=== PATIENT | male | born 1970 | race African-American/Black ===

== ENCOUNTER → 2017-10-14 | Outpatient (CLI) | payer OTHER, BC | END | disposition home or self-care (01) | LOC: KCIC MRI 15:54 | DX: S83.242A Other tear of medial meniscus, current injury, left knee, initial encounter (principal); M17.12 Unilateral primary osteoarthritis, left knee; M94.262 Chondromalacia, left knee; X58.XXXA Exposure to other specified factors, initial encounter; Y93.89 Activity, other specified; Y92.89 Other specified places as the place of occurrence of the external cause; Y99.8 Other external cause status | CPT/HCPCS: 73721 ==

== ENCOUNTER 2021-01-27 16:29 | Emergency (ER) | payer BC ==
[~2021-01-27] VITALS: Ht 182.9 cm; Wt 106.8 kg
[2021-01-27 17:44] LABS: BASO # 0.1 x10^3/uL (0.0-0.2); BASO % 1 % (0-3); EOS % 0 % (0-3); HEMATOCRIT 38.8 % (39.0-53.0); HEMOGLOBIN 12.7 g/dL (13.0-17.5); LYMPH # 2.7 x10^3/uL (1.0-4.8); LYMPH % 33 % (24-48); MEAN CORPUSCULAR HEMOGLOBIN 23 pg (25-35); MEAN CORPUSCULAR HGB CONC 33 g/dL (31-37); MEAN CORPUSCULAR VOLUME 71 fL (79-100); MONO # 0.6 x10^3/uL (0.0-1.1); MONO % 7 % (0-9); NEUT # 4.9 x10^3/uL (1.8-7.7); NEUT % 59 % (31-73); PLATELET COUNT 317 x10^3/uL (140-400); RED BLOOD COUNT 5.49 x10^6/uL (4.30-5.70); RED CELL DISTRIBUTION WIDTH 15.2 % (11.5-14.5); WHITE BLOOD COUNT 8.3 x10^3/uL (4.0-11.0)
[2021-01-27] MEDS ORDERED: MECLIZINE HCL 12.5 MG TABLET. PO ONE (17:45)
[2021-01-27 17:46] LABS: BILIRUBIN,URINE NEGATIVE (NEG); CLARITY,URINE CLEAR; COLOR,URINE YELLOW; NITRITE,URINE NEGATIVE (NEG); PROTEIN,URINE NEGATIVE (NEG-TRACE); UROBILINOGEN,URINE 0.2 mg/dL (0.2 mg/dL)
[2021-01-27 17:52] LABS: BACTERIA,URINE 0 /HPF (0-FEW); RBC,URINE 0 /HPF (0-2); WBC,URINE 0 /HPF (0-4)
--- NOTE | 2021-01-27 18:02 | RAD ---
EXAM: CT Head without IV contrast CLINICAL HISTORY: near syncope, dizzy COMPARISON: None. TECHNIQUE: Routine CT of the head without contrast. PQRS compliance statement - One or more of the following individualized dose reduction techniques wer e utilized for this study: 1. Automated exposure control 2. Adjustment of the mA and/or kV according to patient size 3. Use of iterative reconstruction technique FINDINGS: There is no evidence of hemorrhage, mass or extra-axial fluid collection. Girard-white differentiation is maintained with no evidence of edema. There is no mass effect or shift of the intracranial structures. The ventricles, basilar cisterns and cortical sulci are normal in size and configuration for the nacho ents stated age. The cerebellum and brainstem are unremarkable. The calvarium demonstrates no evidence of fracture or focal lesion. There is normal aeration of the visualized paranasal sinuses and mastoid air cells. The visualized portions of the orbits are normal. IMPRESSION: No evidence for acute intracranial process. Electronically signed by: Chad Davidson MD (01/27/2021 6:00 PM) [place]
[2021-01-27 18:10] LABS: CALCIUM 8.5 mg/dL (8.5-10.1); CREATININE 1.1 mg/dL (0.7-1.3); GFR 85.4
[2021-01-27 18:18] LABS: ALBUMIN 4.1 g/dL (3.4-5.0); ALBUMIN/GLOBULIN RATIO 1.5 (1.0-1.7); TOTAL BILIRUBIN 0.6 mg/dL (0.2-1.0); TOTAL PROTEIN 6.9 g/dL (6.4-8.2)
--- NOTE | 2021-01-27 18:23 | ED.ADGEN ---
Past Medical History Past Medical History: A-Fib, Hypertension Past Surgical History: Other Additional Past Surgical Histo: L. KNEE Smoking Status: Never Smoker Alcohol Use: Occasionally Drug Use: None General Adult EDM: Chief Complaint: NEAR SYNCOPE HPI: HPI: Patient is a 50 year old male who presents to the ER with complaints of intermittent dizziness for the last 3-4 weeks. Pt states that the symptoms usually occur after he has been driving. He denies any chest pain, LOC, nausea, vomiting, SOA, diarrhea, abdominal pain, fever, cough, headache, numbness, tingling, weakness, headache, difficulty speaking, incoordination, or vision changes. PT states he has been using flonase and taking an antibiotic that his PCP prescribed last week for persistent nasal congestion, sinus pressure, runny nose, and sneezing. Pt states that when the dizziness occcurs he notices a low buzzing sound in his ears. He denies any decreased hearing or ear pain. Pt currently denies any pain. Review of Systems: Review of Systems: COmplete ROS is negative unless otherwise documented in the HPI. Current Medications: Current Medications Medications (Trade) Dose Ordered Sig/Claribel Start Time Stop Time Status Last Admin Dose Admin Meclizine HCl (Antivert) 25 mg 1X ONCE 01/27/21 17:45 01/27/21 17:46 DC 01/27/21 18:23 25 MG Potassium Chloride (Klor-Con) 40 meq 1X ONCE 01/27/21 18:30 01/27/21 18:31 DC 01/27/21 19:03 40 MEQ Sodium Chloride 1,000 ml @ 1,000 mls/hr 1X ONCE 01/27/21 18:30 01/27/21 19:29 DC 01/27/21 18:22 1,000 MLS/HR Allergies: Allergies: Allergies Coded Allergies Type Severity Reaction Last Updated Verified No Known Drug Allergies 11/26/14 No Physical Exam: PE: Constitutional: Well developed, well nourished, no acute distress, non-toxic appearance. [] HENT: Normocephalic, atraumatic, bilateral external ears normal, oropharynx moist, post nasal drainage present, no oral exudates, nose congested bilat Eyes: PERRLA, EOMI, conjunctiva normal, no discharge, no nystagmus . [] Neck: Normal range of motion, no tenderness, supple, no stridor. [] Cardiovascular:Heart rate regular rhythm Lungs & Thorax: respirations regular, unlabored, no wheezing, speaking full sentences Abdomen: soft, no tenderness, no masses, no pulsatile masses. [] Skin: Warm, dry, no erythema, no rash. [] Back: No tenderness Extremities: No tenderness, no cyanosis, no clubbing, ROM intact, no edema. [] Neurologic: Alert and oriented X 3, normal motor function, normal sensory function, no focal deficits noted. [] Psychologic: Affect normal, judgement normal, mood normal. [] Current Patient Data: Labs: Laboratory Tests Test 01/27/21 16:40 01/27/21 16:46 Urine Collection Type Unknown Urine Color Yellow Urine Clarity Clear Urine pH 7.0 (<5.0-8.0) Urine Specific [place] 1.025 (1.000-1.030) Urine Protein Negative mg/dL (NEG-TRACE) Urine Glucose (UA) Negative mg/dL (NEG) Urine Ketones (Stick) Negative mg/dL (NEG) Urine Blood Negative (NEG) Urine Nitrite Negative (NEG) Urine Bilirubin Negative (NEG) Urine Urobilinogen Dipstick 0.2 mg/dL (0.2 mg/dL) Urine Leukocyte Esterase Negative (NEG) Urine RBC 0 /HPF (0-2) Urine WBC 0 /HPF (0-4) Urine Bacteria 0 /HPF (0-FEW) White Blood Count 8.3 x10^3/uL (4.0-11.0) Red Blood Count 5.49 x10^6/uL (4.30-5.70) Hemoglobin 12.7 g/dL (13.0-17.5) L Hematocrit 38.8 % (39.0-53.0) L Mean Corpuscular Volume 71 fL (79-100) L Mean Corpuscular Hemoglobin 23 pg (25-35) L Mean Corpuscular Hemoglobin Concent 33 g/dL (31-37) Red Cell Distribution Width 15.2 % (11.5-14.5) H Platelet Count 317 x10^3/uL (140-400) Neutrophils (%) (Auto) 59 % (31-73) Lymphocytes (%) (Auto) 33 % (24-48) Monocytes (%) (Auto) 7 % (0-9) Eosinophils (%) (Auto) 0 % (0-3) Basophils (%) (Auto) 1 % (0-3) Neutrophils # (Auto) 4.9 x10^3/uL (1.8-7.7) Lymphocytes # (Auto) 2.7 x10^3/uL (1.0-4.8) Monocytes # (Auto) 0.6 x10^3/uL (0.0-1.1) Eosinophils # (Auto) 0.0 x10^3/uL (0.0-0.7) Basophils # (Auto) 0.1 x10^3/uL (0.0-0.2) Platelet Estimate Adequate (ADEQUATE) Hypochromasia Mod Microcytosis Mod Ovalocytes Occ Sodium Level 139 mmol/L (136-145) Potassium Level 3.0 mmol/L (3.5-5.1) L Chloride Level 101 mmol/L (98-107) Carbon Dioxide Level 28 mmol/L (21-32) Anion Gap 10 (6-14) Blood Urea Nitrogen 15 mg/dL (8-26) Creatinine 1.1 mg/dL (0.7-1.3) Estimated GFR (Cockcroft-Gault) 85.4 BUN/Creatinine Ratio 14 (6-20) Glucose Level 89 mg/dL (70-99) Calcium Level 8.5 mg/dL (8.5-10.1) Magnesium Level 2.0 mg/dL (1.8-2.4) Total Bilirubin 0.6 mg/dL (0.2-1.0) Aspartate Amino Transferase (AST) 22 U/L (15-37) Alanine Aminotransferase (ALT) 35 U/L (16-63) Alkaline Phosphatase 79 U/L (46-116) Troponin I Quantitative < 0.017 ng/mL (0.000-0.055) Total Protein 6.9 g/dL (6.4-8.2) Albumin 4.1 g/dL (3.4-5.0) Albumin/Globulin Ratio 1.5 (1.0-1.7) Laboratory Tests 01/27/21 16:46 Laboratory Tests 01/27/21 16:46 Vital Signs: Vital Signs Date Time Temp Pulse Resp B/P (MAP) Pulse Ox O2 Delivery O2 Flow Rate FiO2 01/27/21 20:01 70 22 136/77 (96) 99 Room Air 01/27/21 16:29 98.1 98.1 EKG: EK-sinus rhythm with left atrial abnormality and leftward axis, rate 70, no STEMI, read by Dr. Polanco [] Heart Score: C/O Chest Pain: No Risk Scores: Score 0 - 3: 2.5% MACE over next 6 weeks - Discharge Home Score 4 - 6: 20.3% MACE over next 6 weeks - Admit for Clinical Observation Score 7 - 10: 72.7% MACE over next 6 weeks - Early Invasive Strategies Radiology/Procedures: Radiology/Procedures: PROCEDURE: CT HEAD WO CONTRAST EXAM: CT Head without IV contrast CLINICAL HISTORY: near syncope, dizzy COMPARISON: None. TECHNIQUE: Routine CT of the head without contrast. RS compliance statement - One or more of the following individualized dose reduction techniques were utilized for this study: 1. Automated exposure control 2. Adjustment of the mA and/or kV according to patient size 3. Use of iterative reconstruction technique FINDINGS: There is no evidence of hemorrhage, mass or extra-axial fluid collection. Girard-white differentiation is maintained with no evidence of edema. There is no mass effect or shift of the intracranial structures. The ventricles, basilar cisterns and cortical sulci are normal in size and configuration for the patients stated age. The cerebellum and brainstem are unremarkable. The calvarium demonstrates no evidence of fracture or focal lesion. There is normal aeration of the visualized paranasal sinuses and mastoid air cells. The visualized portions of the orbits are normal. IMPRESSION: No evidence for acute intracranial process. Electronically signed by: Chad Davidson MD (01/27/2021 6:00 PM) [facility] [] Course & Med Decision Making: Course & Med Decision Making Pertinent Labs and Imaging studies reviewed. (See chart for details) PT presented to the ER with c/o intermittent light headedness and dizzy sensation with position changes for the last 3-4 weeks EKG revealed no acute changes, Low suspicion for ACS CBC unremarkable, CMP revealed low K+ of 3.0 pt was given 40 meq PO K+ in the ER, otherwise unremarkable, CK and troponin are not elevated; UA is unremarkable. CT head revealed no acute findings. Orthostatic BPs are unremarkable. Pt was given 25 mg of meclizine in [facility] ER and reported feeling better after the medication, denies dizziness with position changes or ambulation in the ER. VSS Pt denies taking a daily antihistamine but reports rhinitis sx. Encouraged him to daily a daily antihistamine such as zyrtec or kassandra and continue using flonase. Recommended follow up with ENT for further evaluation of abnormal hearing and suspected eustachian tube dysfunction. Return to the ER if symptoms worsen or fever develops. Pt and his verbalized an understanding of discharge, medications, follow-up and return precautions and were in agreement with POC [] Zackery Disclaimer: Zackery Disclaimer: This electronic medical record was generated, in whole or in part, using a voice recognition dictation system. Departure Departure Impression: Primary Impression: Vertigo Additional Impression: Pulsatile tinnitus, bilateral Disposition: HOME / SELF CARE / HOMELESS Condition: STABLE Referrals: JOS SULLIVAN MD (PCP) JUNE MCCABE MD Patient Instructions: Tinnitus, Vertigo Additional Instructions: Fill the prescription(s) and use as directed. Recommend that you take 10 mg of generic Zyrtec (cetirizine) or Kassandra at night and continue use of Flonase (fluticasone) nasal spray 2 sprays each nostril once daily in the morning. You may take Tylenol or ibuprofen as needed for pain/fever. Increase clear fluids. Avoid triggers such as smoke, fragrance, dust, and pollen. Follow-up with Dr. Mccabe for further evaluation of the abnormal sound in your ears, follow-up with your primary care doctor in 1 to 2 days for reevaluation of dizziness, return to the ER if symptoms worsen or fever develops. Scripts Meclizine Hcl (MECLIZINE HCL) 25 Mg Tablet 1 TAB PO PRN TID PRN for DIZZINESS for 10 Days, #30 TAB 0 Refills Prov: TACOS SAVAGE APRN 01/27/21 Attending Signature Attending Signature I have participated in the care of this patient and I have reviewed and agree with all pertinent clinical information above including history, exam, and recommendations. Problem Qualifiers TACOS SAVAGE APRN Jan 27, 2021 18:23 SHAILESH GONSALEZ DO Jan 28, 2021 13:21
[2021-01-27] MEDS ORDERED: POTASSIUM CHLORIDE 20 MEQ TABLET.ER. PO ONE (18:30)
[2021-01-27] MEDS ORDERED: IV NORMAL SALINE 1000ML BAG 1,000 ML IV ONE (18:30)
--- NOTE | 2021-01-27 19:24 | EKG ---
[facility] [address] [place] [address] Test Date: 2021-01-27 Test Time: 16:39:38 Pat Name: GREGORY KING Department: Room: Gender: L[employer] W[employer] Operator: : 1970 Requested By: TACOS SAVAGE Order Number: [id number] Reading MD: Measurements Intervals [place] Rate: 70 P: 52 [place]: 172 QRS: -13 QRSD: 84 T: 24 QT: 390 QTc: 424 Interpretive Statements SINUS RHYTHM LEFT ATRIAL ABNORMALITY LEFTWARD AXIS ABNORMAL ECG RI6.02 No previous ECG available for comparison
[2021-01-27 19:43] LABS: PLT ESTIMATE ADEQUATE (ADEQUATE)
[2021-01-27 19:44] LABS: HYPOCHROMIA MOD; MICROCYTOSIS MOD; OVALOCYTES OCC
[2021-01-27] MEDS ORDERED: MECL-75 PO (19:57)
[2021-01-27 20:01] VITALS: BP 136/77
== END 2021-01-27 20:00 | disposition home or self-care (01) ==
LOC: ER 16:29
DX: R42 Dizziness and giddiness (principal); H93.13 Tinnitus, bilateral; R09.81 Nasal congestion; R09.89 Other specified symptoms and signs involving the circulatory and respiratory systems; I48.20 Chronic atrial fibrillation, unspecified; I10 Essential (primary) hypertension; Z98.890 Other specified postprocedural states
CPT/HCPCS: 36415; 70450; 80053; 81001; 83735; 84484; 85025; 93005; 96360; 99285; J7030; J8597